=== PATIENT | female | born 1945 | race Caucasian/White ===

== ENCOUNTER 2017-10-14 16:54 | Observation (INO) ==
[2017-10-14] MEDS ORDERED: Morphine Inj 4 MG/ML Vial IV.PUSH ONE (19:07)
--- NOTE | 2017-10-14 20:07 | ED ---
HPI General Chief complaint: Syncope Stated complaint: Dr Referred/Syncope complaint Time Seen by Provider: 10/14/17 18:47 Source: patient and family Mode of arrival: ambulatory History of Present Illness HPI narrative: 72yF presenting with multiple episodes of syncope. The patient states that she is visiting from [place] and today had 3 episodes of syncope and fall. She denies any prodromal symptoms and says "I just passed out"; 2 episodes were witnessed and the patient admits to hitting her head on a table during 1 episode. She complains of posterior neck pain, back pain, and " tailbone pain". Denies history of syncope in the past, admits to history of A fib about 30 years ago. Family history non-contributory. Related Data Home Medications Medication Instructions Recorded Confirmed atenolol [Tenormin] 25 mg PO BID 10/14/17 10/14/17 clonidine HCl [Catapres] 0.1 mg PO BID 10/14/17 10/14/17 cyclobenzaprine 10 mg PO BID PRN 10/14/17 10/14/17 gabapentin 300 mg PO TID 10/14/17 10/14/17 glipizide 10 mg PO DAILY 10/14/17 10/14/17 lisinopril 20 mg PO DAILY 10/14/17 10/14/17 tizanidine 4 mg PO TID PRN 10/14/17 10/14/17 tramadol 50 mg PO Q4-6H PRN 10/14/17 10/14/17 Allergies Allergy/AdvReac Type Severity Reaction Status Date / Time No Known Allergies Allergy Unverified 10/14/17 19:07 Review of Systems Except as stated in HPI: all other systems reviewed are negative Constitutional Denies fever(s) Eyes Denies blurry vision ENT Denies nasal congestion Cardiovascular Denies chest pain Respiratory Denies cough Gastrointestinal Denies nausea Genitourinary Denies dysuria Musculoskeletal Reports back pain, Denies muscle weakness and Reports neck pain Neurologic Denies confusion Psychiatric Denies confusion PMFSH History History Provided By: Patient Medical History Medical History Hypertension (Acute) Type 2 diabetes mellitus (Acute) Surgical History Surgical History H/O arthroscopic knee surgery (Acute) Hx of tonsillectomy (Acute) Social History Social History Substance History: No History of Abuse Smoking Status: Never smoker How Often Do You Have a Drink Containing Alcohol: Never Recent Travel in [facility] within the Last 8 Weeks: No Recent Out of Country Travel within the Last 8 Weeks: No Immunization History Tetanus Immunization: Unsure Exam Const General: healthy appearing and no acute distress HENRI Other: Abrasion to left cheek Hematoma to left posterior scalp, no abrasion No raccoon eyes or Khoury's sign No epistaxis or septal hematoma No intraoral trauma Eyes General: appearance normal, both eyes and all related structures Pupils: PERRL Neck Other: No midline C spine tenderness Chest Chest: normal inspection of the chest Resp Effort & Inspection: normal respiratory effort Auscultation: no rhonchi and no wheezes Cardio Rate: regular rate Rhythm: regular rhythm GI Inspection: non-distended Palpation: soft and nontender Skin Other: Ecchymosis to left lateral shoulder, overlying left scapula, left knee, right knee Neuro General: alert, awake, oriented x3 and no focal motor deficits Other: Motor strength 5/5, sensation intact throughout, no pronator drift, no asterixis or dysmetria, no nystagmus, speech clear and fluent, GCS 15, no focal neuro deficits Psych Affect: normal affect Course Initial Documented Vital Signs Temperature 98.2 F 10/14/17 17:30 Pulse Rate 85 10/14/17 17:30 Respiratory Rate 16 10/14/17 17:30 Blood Pressure 138/68 10/14/17 17:30 Pulse Oximetry 99 10/14/17 17:30 Last Documented Vital Signs Temperature 98.2 F 10/14/17 17:30 Pulse Rate 77 10/14/17 22:00 Respiratory Rate 16 10/14/17 22:00 Blood Pressure 151/68 H 10/14/17 22:00 Pulse Oximetry 98 10/14/17 22:00 Medical Decision Making [facility] Narrative Medical decision making narrative: Assessment: 72yF presenting with multiple episodes of syncope and collapse Plan: EKG and monitor Labs, including trop CT brain/ C spine/ C/A/P to rule out traumatic injuries Pain control Reassess Addendum: Patient's workup significant for mildly elevated troponin (trending down) and elevated BUN/ creat; the patient reports her creatinine was previous 0.8 but I don't have any previous labs in our system to compare to. CT scans show no acute traumatic injuries. This patient cannot go home as she has recurrent syncopal episodes and acute kidney injury; she will need IV hydration , cardiac monitoring, and re-evaluation at frequent intervals. Case discussed with Dr. Valero of [facility] service. I informed the patient of the results of all labs and imaging as well as plan to keep her in the hospital; she understands and agrees. Differential Diagnosis Differential Diagnosis: Differential diagnosis includes, but is not limited to: ACS, arrhythmia, vasovagal syncope, electrolyte abnormality, dehydration, anemia , lower suspicion for non-convulsive seizure Lab Data Result diagrams: 10/14/17 19:00 10/14/17 19:00 Lab Results 10/14/17 10/14/17 10/14/17 Range/Units 19:00 19:00 19:00 WBC 9.6 (4.0-11.0) th/mm3 RBC 5.35 H (4.00-5.30) mil/mm3 Hgb 15.0 (11.6-15.3) gm/dL Hct 45.0 (35.0-46.0) % MCV 84.2 (80.0-100.0) fL MCH 28.1 (27.0-34.0) pg MCHC 33.4 (32.0-36.0) % RDW 13.7 (11.6-17.2) % Plt Count 261 (150-450) th/mm3 MPV 8.8 (7.0-11.0) fL Neut % (Auto) 61.9 (16.0-70.0) % Lymph % (Auto) 29.1 (9.0-44.0) % [place] % (Auto) 7.3 (0.0-8.0) % Eos % (Auto) 0.9 (0.0-4.0) % Baso % (Auto) 0.8 (0.0-2.0) % Neut # (Auto) 6.0 (1.8-7.7) th/mm3 Lymph # (Auto) 2.8 (1.0-4.8) th/mm3 [place] # (Auto) 0.7 (0.0-0.9) th/mm3 Eos # (Auto) 0.1 (0.0-0.4) th/mm3 Baso # (Auto) 0.1 (0.0-0.2) th/mm3 WBC Differential . Differential Comment Auto diff final PT 10.1 (9.8-11.6) sec INR 1.0 Ratio Sodium 135 L (136-145) meq/L Potassium 3.7 (3.5-5.1) meq/L Chloride 99 (98-107) meq/L Carbon Dioxide 24.2 (21.0-32.0) meq/L Anion Gap 12 (5-15) meq/L BUN 44 H (7-18) mg/dL Creatinine 2.03 H (0.50-1.00) mg/dL Estimated GFR 24 L (>89) mL/min Random Glucose 405 H (74-106) mg/dL Calcium 9.4 (8.5-10.1) mg/dL Troponin I 0.10 H (0.02-0.05) ng/mL 10/14/17 Range/Units 22:15 WBC (4.0-11.0) th/mm3 RBC (4.00-5.30) mil/mm3 Hgb (11.6-15.3) gm/dL Hct (35.0-46.0) % MCV (80.0-100.0) fL MCH (27.0-34.0) pg MCHC (32.0-36.0) % RDW (11.6-17.2) % Plt Count (150-450) th/mm3 MPV (7.0-11.0) fL Neut % (Auto) (16.0-70.0) % Lymph % (Auto) (9.0-44.0) % [place] % (Auto) (0.0-8.0) % Eos % (Auto) (0.0-4.0) % Baso % (Auto) (0.0-2.0) % Neut # (Auto) (1.8-7.7) th/mm3 Lymph # (Auto) (1.0-4.8) th/mm3 [place] # (Auto) (0.0-0.9) th/mm3 Eos # (Auto) (0.0-0.4) th/mm3 Baso # (Auto) (0.0-0.2) th/mm3 WBC Differential Differential Comment PT (9.8-11.6) sec INR Ratio Sodium (136-145) meq/L Potassium (3.5-5.1) meq/L Chloride (98-107) meq/L Carbon Dioxide (21.0-32.0) meq/L Anion Gap (5-15) meq/L BUN (7-18) mg/dL Creatinine (0.50-1.00) mg/dL Estimated GFR (>89) mL/min Random Glucose (74-106) mg/dL Calcium (8.5-10.1) mg/dL Troponin I 0.08 H (0.02-0.05) ng/mL Imaging Data Radiologist's impression: ITS Impressions Cervical Spine CT 10/14/17 19:07 CONCLUSION: 1. No acute cervical spine abnormality is identified. However, there is degenerative disc disease at C4-C5 and extending through C6-C7. 2. There is a right thyroid nodule measuring [address] 10/14/17 19:07 CONCLUSION: No acute intracranial abnormality is identified. Abdomen/Pelvis CT 10/14/17 20:39 CONCLUSION: 1. No acute abnormality is identified within the abdomen or pelvis. 2. Nonacute findings include cholelithiasis and severe atherosclerotic disease. Chest CT 10/14/17 20:39 CONCLUSION: 1. No acute finding is identified within the chest. 2. There is a 3 mm pulmonary nodule in the left lower lobe. ECG Data Interpretation: Rate: 80 BPM Rhythm: Sinus [place]: Normal Intervals: Normal intervals, no blocks, QTc 424 ms Q waves: aVL, V2 T waves: Flattened in aVL ST segments: No elevations or depressions Impression: Non-specific EKG, Q wave in aVL is new but otherwise no significant changes as compared to EKG from 11/19/2006. Discharge Plan Discharge Disposition Patient Disposition: 30 Still Patient Discharge Condition Condition: Stable Discharge Details Diagnosis: Recurrent syncope, Acute kidney injury Physicians Team ED Provider: Leilani Ferguson Primary Care Provider: Primary Care Crystal Up Attending Provider: Colette Valero Discharge Interventions Interventions: Vital Signs Last Done: 10/14/17 22:00 Status ED Status: Admitted Observation Patient
[2017-10-14 20:09] LABS: Baso # (Auto) 0.1 th/mm3 (0.0-0.2); Baso % (Auto) 0.8 % (0.0-2.0); Eos # (Auto) 0.1 th/mm3 (0.0-0.4); Eos % (Auto) 0.9 % (0.0-4.0); Lymph # (Auto) 2.8 th/mm3 (1.0-4.8); Lymph % (Auto) 29.1 % (9.0-44.0); Mean Corpuscular HGB Conc 33.4 % (32.0-36.0); Mean Corpuscular Hemoglobin 28.1 pg (27.0-34.0); Mean Corpuscular Volume 84.2 fL (80.0-100.0); Mean Platelet Volume 8.8 fL (7.0-11.0); Mono # (Auto) 0.7 th/mm3 (0.0-0.9); Mono % (Auto) 7.3 % (0.0-8.0); Neut % (Auto) 61.9 % (16.0-70.0); Platelet Count 261 th/mm3 (150-450); Red Blood Count 5.35 mil/mm3 (4.00-5.30); Red Cell Distribution Width 13.7 % (11.6-17.2); White Blood Count 9.6 th/mm3 (4.0-11.0)
[2017-10-14 20:17] LABS: Prothrombin Time 10.1 sec (9.8-11.6)
[2017-10-14] MEDS ORDERED: Sod Chloride 0.9% Inj 1,000 ML IV.SIG ONE ×2 (20:18→23:02)
[2017-10-14 20:27] LABS: Calcium 9.4 mg/dL (8.5-10.1); Carbon Dioxide 24.2 meq/L (21.0-32.0)
[2017-10-14 20:28] LABS: Potassium 3.7 meq/L (3.5-5.1)
[2017-10-14 20:46] LABS: Troponin I 0.1 ng/mL (0.02-0.05)
--- NOTE | 2017-10-14 21:22 | CT ---
EXAM DATE: 10/14/2017 9:18 PM EDT AGE/SEX: 72 years / Female INDICATIONS: Trauma. Fall. Syncope CLINICAL DATA: This is the patient's initial encounter. Patient reports that signs and symptoms have been present for 4 - 6 days and indicates a pain score of 7/10. MEDICAL/SURGICAL HISTORY: Hypertension. Diabetes. None. RADIATION DOSE: 41.85 CTDI (mGy) COMPARISON: No prior exams available for comparison. TECHNIQUE: CT of the head without contrast. Using automated exposure control and adjustment of the mA and/or kV according to patient size, radiation dose was kept as low as reasonably achievable to ob tain optimal diagnostic quality images. DICOM format image data is available electronically for revi ew and comparison. FINDINGS: Cerebrum: There is mild generalized atrophy and ventricles are normal given the degree of atrophy. M ild periventricular white matter change is present. No midline shift, mass lesion, hemorrhage or acu te infarction. No extraaxial fluid collections are seen. Posterior Fossa: The cerebellum and brainstem demonstrate no acute abnormality. The 4th ventricle is midline. The cerebellopontine angle is within normal limits. Extracranial: The visualized sinuses are clear. Skull: The calvaria is intact. No skull fracture. CONCLUSION: No acute intracranial abnormality is identified. Electronically signed by: Josef Castano MD 10/14/2017 9:21 PM EDT
--- NOTE | 2017-10-14 21:51 | CT ---
EXAM DATE: 10/14/2017 9:34 PM EDT AGE/SEX: 72 years / Female INDICATIONS: Trauma. Fall. Syncope. CLINICAL DATA: This is the patient's initial encounter. Patient reports that signs and symptoms have been present for 4 - 6 days and indicates a pain score of 5/10. MEDICAL/SURGICAL HISTORY: Hypertension. Diabetes. None. RADIATION DOSE: 19.33 CTDI (mGy) COMPARISON: No prior exams available for comparison. TECHNIQUE: Contiguous axial images were obtained using helical multirow detector technique. The vol umetric data was post-processed with multiplanar reconstruction in oblique axial, sagittal, and coron al planes. Using automated exposure control and adjustment of the mA and/or kV according to patient s ize, radiation dose was kept as low as reasonably achievable to obtain optimal diagnostic quality pipe ges. DICOM format image data is available electronically for review and comparison. FINDINGS: There is normal sagittal spinal alignment of the cervical spine. No fracture or dislocation is identi fied. There is no anterolisthesis or retrolisthesis. The atlantoaxial relationship is within normal l imits and no prevertebral soft tissue swelling is appreciated. Degenerative disc disease is present a t C4-C5 and extending through C6-C7. The visualized surrounding structures demonstrate no acute abnormality. However, there is a hypodense right thyroid nodule measuring 7 mm. CONCLUSION: 1. No acute cervical spine abnormality is identified. However, there is degenerative disc disease at C4-C5 and extending through C6-C7. 2. There is a right thyroid nodule measuring 7 mm. Electronically signed by: Josef Castano MD 10/14/2017 9:49 PM EDT
--- NOTE | 2017-10-14 22:00 | CT ---
EXAM DATE: 10/14/2017 9:37 PM EDT AGE/SEX: 72 years / Female INDICATIONS: Trauma. Fall. CLINICAL DATA: This is the patient's initial encounter. Patient reports that signs and symptoms have been present for 1 day and indicates a pain score of 6/10. MEDICAL/SURGICAL HISTORY: Hypertension. Diabetes. None. RADIATION DOSE: 14.47 CTDI (mGy) ; Combined studies COMPARISON: No prior exams available for comparison. TECHNIQUE: Multiple contiguous axial images were obtained through the chest without contrast. Image s were obtained in suspended respiration using multiple row detector helical technique. Using automa esau exposure control and adjustment of the mA and/or kV according to patient size, radiation dose was kept as low as reasonably achievable to obtain optimal diagnostic quality images. DICOM format imag e data is available electronically for review and comparison. FINDINGS: Lungs: No consolidation or pneumothorax. There is mild respiratory motion artifact. A 3 mm subpleur al nodule is present in the left lower lobe on image 36. Mediastinum: The heart and great vessels demonstrate no acute abnormality. No lymphadenopathy is id entified. There is coronary artery calcification and atherosclerotic disease of the aorta. Pleurae: No pleural effusion or pleural thickening. Axillae: No lymphadenopathy. Musculoskeletal: The bones and soft tissues demonstrate no acute abnormality. There are degenerativ e changes of the thoracic spine. Other: Please refer to abdomen and pelvis CT report for description of the subdiaphragmatic findings . CONCLUSION: 1. No acute finding is identified within the chest. 2. There is a 3 mm pulmonary nodule in the left lower lobe. Electronically signed by: Josef Castano MD 10/14/2017 9:58 PM EDT
--- NOTE | 2017-10-14 22:31 | CT ---
EXAM DATE: 10/14/2017 9:40 PM EDT AGE/SEX: 72 years / Female INDICATIONS: Trauma. Fall. CLINICAL DATA: This is the patient's initial encounter. Patient reports that signs and symptoms have been present for 4 - 6 days and indicates a pain score of 6/10. MEDICAL/SURGICAL HISTORY: Hypertension. Diabetes. None. RADIATION DOSE: 14.47 CTDI (mGy) ; Combined studies COMPARISON: No prior exams available for comparison. TECHNIQUE: Multiple contiguous axial images were obtained through the abdomen. Images were obtained using multiple row detector helical technique. Using automated exposure control and adjustment of the mA and/or kV according to patient size, radiation dose was kept as low as reasonably achievable to o btain optimal diagnostic quality images. DICOM format image data is available electronically for rev iew and comparison. FINDINGS: There is respiratory motion artifact. Lower chest: Please refer to chest CT report for description of the supradiaphragmatic findings. Hepatobiliary: Liver density is normal. No focal lesion is seen. There are calcified stones in the ga llbladder. Kidneys: No hydronephrosis, stone, or mass. Adrenal Glands: Within normal limits. Spleen: Within normal limits. Pancreas: No abnormality is identified. Vascular: The aorta is nonaneurysmal. There is moderate to severe atherosclerotic disease. Bowel/Mesentery: The stomach and small bowel demonstrate no abnormality. No acute colon abnormality i s seen. There is no free intraperitoneal air or fluid. Sigmoid diverticulosis is present. Abdominal Wall: No hernia is visualized. Retroperitoneum: No lymphadenopathy. Bladder: No wall thickening or mass. Reproductive: Within normal limits. Inguinal: No lymphadenopathy or hernia. Musculoskeletal: No acute osseous abnormality is identified. There are degenerative changes of the prosper mbar spine. CONCLUSION: 1. No acute abnormality is identified within the abdomen or pelvis. 2. Nonacute findings include cholelithiasis and severe atherosclerotic disease. Electronically signed by: Josef Castano MD 10/14/2017 10:30 PM EDT
[2017-10-14] MEDS ORDERED: Dextrose 50% in Water 50 ML Vial IV.PUSH PRN (23:09)
[2017-10-14] MEDS ORDERED: Bisacodyl 10 MG Supp RECTAL PRN (23:10)
[2017-10-14] MEDS ORDERED: Morphine Sulfate Inj 2 MG/ML Vial IV.PUSH PRN (23:12)
--- NOTE | 2017-10-14 23:13 | P.HPIM ---
History of Present Illness Primary Care Physician: No Primary Care Physician History of Present Illness: This is a 72-year-old female with a PMH of HTN and DM who presented to the ER after syncopal event. Patient is visiting from [place], [place] to assist family members w/ their medical problems, states she's been following w/ PCP in [place] for c/o back pain and was started on Neurontin and Zanaflex approx 3wks ago. Last week notes acute onset of dizziness w/ few syncopal events, did not seek medical attention at that time. Today, states she had syncope x3 w/ head trauma on kitchen floor. No seizure activity noted. Denies chest pain but notes brief episode of dizziness prior to syncope. On arrival, BP 135/69, HR 81 , O2 sat 100% on RA. CBC unremarkable. Creatinine 2.03, no previous labs for comparison. Troponin 0 0.10, repeat 0.08. CT Head/C-spine with no acute findings. CT Chest with no acute findings, 3 mm pulmonary nodule LLL. CT Abdomen/Pelvis negative for acute findings. - Diagnosis (1) Syncope (2) KERRI (acute kidney injury) (3) Elevated troponin (4) DM (diabetes mellitus) Inpatient Certification: I certify that the inpatient services were ordered in accordance with Medicare regulations governing the order. This includes certification that hospital inpatient services are reasonable and necessary and in the case of services not specified as inpatient-only under 42 CFR 419.22(n), that they are appropriately provided as inpatient services in accordance to with the 2-midnight benchmark under 43 CFR 412.3(e) Review of Systems All other systems reviewed negative except as stated in HPI [facility] - History History Provided By: Patient - Medical History Medical History: Medical History (Last Reviewed 10/14/17 @ 20:11 by Leilani Ferguson DO) Hypertension Type 2 diabetes mellitus - Surgical History Surgical History: Surgical History (Last Reviewed 10/14/17 @ 20:11 by Leilani Ferguson DO) H/O arthroscopic knee surgery Hx of tonsillectomy - Tobacco History Smoking Status: Never smoker - Alcohol History How Often Do You Have a Drink Containing Alcohol: Never - Substance Use History Substance History: No History of Abuse - Travel History Recent Travel in the [place] Within the Last 8 Weeks: No Recent Travel Out of the Country Within the Last 8 Weeks: No - Immunization History Tetanus Immunization: Unsure Medications and Allergies Active Medications: Active Medications Hydrocodone Bitart/Acetaminophen ([place] 5/325) 1 tab PO Q4H PRN PRN Reason: PAIN 3-5 Al Hydroxide/Mg Hydroxide (Milk Of Magnesia Liq) 30 ml PO Q12H PRN PRN Reason: Mild Constipation Atenolol (Tenormin) 25 mg PO BID TRINA Bisacodyl (Dulcolax Supp) 10 mg RECTAL DAILY PRN PRN Reason: SEVERE CONSITIPATION Clonidine HCl (Clonidine (Nicu) 20 Mcg/Ml Liq) 100 mcg PO BID TRINA Dextrose (D50w Vial) 50 ml IV.PUSH UNSCH PRN PRN Reason: PER HYPOGLYCEMIA PROTOCOL Glucagon (Glucagon Inj) 1 mg OTHER PRN PRN PRN Reason: for Hypoglycemia Protocol Sodium Chloride (Ns Inj) 1,000 mls @ 100 mls/hr IV.CONT .Q10H TRINA Insulin Aspart (Novolog Insulin Suppl Scale Inj) 0 unit SQ ACHS TRINA; Protocol Lactulose (Lactulose Liq) 30 ml PO DAILY PRN PRN Reason: SEVERE CONSITIPATION Metoclopramide HCl (Reglan Inj) 5 mg IV.PUSH Q6HR PRN; Protocol PRN Reason: NAUSEA OR VOMITING Morphine Sulfate (Morphine Inj) 2 mg IV.PUSH Q4H PRN PRN Reason: PAIN 6-10 Senna/Docusate Sodium (Kaelyn-Colace) 1 tab PO BID [facility] Sennosides (Senokot) 17.2 mg PO Q12H PRN PRN Reason: Moderate Constipation Allergies Allergy/AdvReac Type Severity Reaction Status Date / Time No Known Allergies Allergy Unverified 10/14/17 19:07 Home Medications Medication Instructions Recorded Confirmed Type atenolol [Tenormin] 25 mg PO BID 10/14/17 10/14/17 History clonidine HCl [Catapres] 0.1 mg PO BID 10/14/17 10/14/17 History cyclobenzaprine 10 mg PO BID PRN 10/14/17 10/14/17 History gabapentin 300 mg PO TID 10/14/17 10/14/17 History glipizide 10 mg PO DAILY 10/14/17 10/14/17 History lisinopril 20 mg PO DAILY 10/14/17 10/14/17 History tizanidine 4 mg PO TID PRN 10/14/17 10/14/17 History tramadol 50 mg PO Q4-6H PRN 10/14/17 10/14/17 History Exam Vital signs: Vital Signs 10/14/17 17:30 10/14/17 18:48 10/14/17 20:00 Temperature 98.2 F Pulse Rate 85 81 78 Respiratory Rate 16 20 16 Blood Pressure 138/68 135/69 121/68 Pulse Oximetry 99 100 100 10/14/17 20:43 10/14/17 22:00 Temperature Pulse Rate 77 Respiratory Rate 16 16 Blood Pressure 151/68 H Pulse Oximetry 98 Intake & Output 10/14/17 10/14/17 10/15/17 06:59 18:59 06:59 Weight 68.039 kg Narrative: PE: GENERAL: Very pleasant middle-aged white female in no acute distress. Sister-in -law at bedside HEENT: [place], EOMI. No scleral icterus or conjunctival pallor. No lid lag or facial droop. CARDIOVASCULAR: Regular rate and rhythm. No obvious murmurs to auscultation. No chest tenderness to palpation. RESPIRATORY: No obvious rhonchi or wheezing. Clear to auscultation. Breath sounds equal bilaterally. GASTROINTESTINAL: Abdomen soft, non-tender, nondistended. BS normal. MUSCULOSKELETAL: Extremities without clubbing, cyanosis, or edema. No obvious deformities. NEUROLOGICAL: Awake, alert and oriented x4. No focal neurologic deficits. Moving both upper and lower extremities spontaneously. Results - Labs CBC & Chem 7: 10/14/17 19:00 10/14/17 19:00 Labs: Short CBC 10/14/17 Range/Units 19:00 WBC 9.6 (4.0-11.0) th/mm3 Hgb 15.0 (11.6-15.3) gm/dL Hct 45.0 (35.0-46.0) % Plt Count 261 (150-450) th/mm3 BMP 10/14/17 19:00 Sodium 135 L Potassium 3.7 Chloride 99 Carbon Dioxide 24.2 BUN 44 H Creatinine 2.03 H Calcium 9.4 Cardiac Enzymes 10/14/17 10/14/17 Range/Units 19:00 22:15 Troponin I 0.10 H 0.08 H (0.02-0.05) ng/mL - Imaging Impressions Cervical Spine CT 10/14/17 19:07 CONCLUSION: 1. No acute cervical spine abnormality is identified. However, there is degenerative disc disease at C4-C5 and extending through C6-C7. 2. There is a right thyroid nodule measuring [address] 10/14/17 19:07 CONCLUSION: No acute intracranial abnormality is identified. Abdomen/Pelvis CT 10/14/17 20:39 CONCLUSION: 1. No acute abnormality is identified within the abdomen or pelvis. 2. Nonacute findings include cholelithiasis and severe atherosclerotic disease. Chest CT 10/14/17 20:39 CONCLUSION: 1. No acute finding is identified within the chest. 2. There is a 3 mm pulmonary nodule in the left lower lobe. Caprini VTE Risk Assessment Caprini VTE Risk Assessment: No/Low Risk (score <= 1) Caprini Risk Assessment Model: Point Value = 1 Point Value = 2 Point Value = 3 Point Value = 5 Age 41-60 Minor surgery BMI > 25 kg/m2 Swollen legs Varicose veins or History of unexplained or recurrent spontaneous Oral contraceptives or hormone replacement Sepsis (< 1 month) Serious lung disease, including pneumonia (< 1 month) Abnormal pulmonary function Acute myocardial infarction Congestive heart failure (< 1 month) History of inflammatory bowel disease Medical patient at bed rest Age 61-74 Arthroscopic surgery Major open surgery (> 45 min) Laparoscopic surgery (> 45 min) Malignancy Confined to bed (> 72 hours) Immobilizing plaster cast Central venous access Age >= 75 History of VTE Family history of VTE Factor V Leiden Prothrombin [id number] Lupus anticoagulant Anticardiolipin antibodies Elevated serum homocysteine Heparin-induced thrombocytopenia Other congenital or acquired thrombophilia Stroke (< 1 month) Elective arthroplasty Hip, pelvis, or leg fracture Acute spinal cord injury (< 1 month) Prophylaxis Regimen: Total Risk Factor Score Risk Level Prophylaxis Regimen 0-1 Low Early ambulation 2 Moderate Order ONE of the following: *Sequential Compression Device (SCD) *Heparin 5000 units SQ BID 3-4 Higher Order ONE of the following medications: *Heparin 5000 units SQ TID *Enoxaparin/Lovenox 40 mg SQ daily (WT < 150 kg, CrCl > 30 mL/min) *Enoxaparin/Lovenox 30 mg SQ daily (WT < 150 kg, CrCl > 10-29 mL/min) *Enoxaparin/Lovenox 30 mg SQ BID (WT < 150 kg, CrCl > 30 mL/min) AND/OR *Sequential Compression Device (SCD) 5 or more Highest Order ONE of the following medications: *Heparin 5000 units SQ TID (Preferred with Epidurals) *Enoxaparin/Lovenox 40 mg SQ daily (WT < 150 kg, CrCl > 30 mL/min) *Enoxaparin/Lovenox 30 mg SQ daily (WT < 150 kg, CrCl > 10-29 mL/min) *Enoxaparin/Lovenox 30 mg SQ BID (WT < 150 kg, CrCl > 30 mL/min) AND *Sequential Compression Device (SCD) Assessment and Plan - Assessment (1) Syncope Code(s): R55 - Syncope and collapse Status: Acute (2) KERRI (acute kidney injury) Code(s): N17.9 - Acute kidney failure, unspecified Status: Acute (3) Elevated troponin Code(s): R74.8 - Abnormal levels of other serum enzymes Status: Acute (4) DM (diabetes mellitus) Code(s): E11.9 - Type 2 diabetes mellitus without complications Status: Acute - Plan A/P: 1. Syncope: c/o dizziness prior to syncopal event, likely combination of dehydration and medication side effects, however r/o underlying cardiac etiology. Telemetry, IVF for hydration, check repeat trop, check Echo to eval for cardiomyopathy 2. Elevated Trop: Trop 0.10, repeat trending down at 0.08, will check serial cardiac enzymes. No c/o chest pain. Telemetry, check Echo as above, check Lipid Profile. Consult Cardiology as needed for further eval/intervention. ASA , Atenolol, start Statin. 3. KERRI: Creatinine 2.03, no previous labs for comparison, however presumably new, IVF for hydration, monitor I/O, repeat labs in am. 4. DM: Sliding scale w/ Accu-Cheks, hold Glipizide for now. 5. DVT Prophylaxis: SCD/Teds 6. Social work for d/c planning as needed 7. Case discussed w/ ER physician at length, labs/records/imaging reviewed by me.
[2017-10-15] MEDS: Sod Chloride 0.9% Inj 1,000 ML IV.CONT SCH ×3 (02:00→16:03)
[2017-10-15 06:35] LABS: Baso % (Auto) 0.5 % (0.0-2.0); Eos # (Auto) 0.1 th/mm3 (0.0-0.4); Hematocrit 38.7 % (35.0-46.0); Lymph # (Auto) 2.3 th/mm3 (1.0-4.8); Lymph % (Auto) 33.5 % (9.0-44.0); Mean Corpuscular HGB Conc 33.7 % (32.0-36.0); Mean Corpuscular Hemoglobin 28.4 pg (27.0-34.0); Mean Corpuscular Volume 84.3 fL (80.0-100.0); Mean Platelet Volume 8.8 fL (7.0-11.0); Mono # (Auto) 0.6 th/mm3 (0.0-0.9); Mono % (Auto) 8.5 % (0.0-8.0); Neut # (Auto) 3.8 th/mm3 (1.8-7.7); Neut % (Auto) 55.5 % (16.0-70.0); Platelet Count 190 th/mm3 (150-450); Red Blood Count 4.59 mil/mm3 (4.00-5.30); Red Cell Distribution Width 13.6 % (11.6-17.2); White Blood Count 6.8 th/mm3 (4.0-11.0)
[2017-10-15 06:58] LABS: Alanine Aminotransferase 32 U/L (10-53); Albumin 2.9 g/dL (3.4-5.0); Anion Gap 8 meq/L (5-15); Aspartate Aminotransferase 34 U/L (15-37); Blood Urea Nitrogen 34 mg/dL (7-18); Calcium 7.9 mg/dL (8.5-10.1); Carbon Dioxide 24.4 meq/L (21.0-32.0); Chloride 108 meq/L (98-107); Glomerular Filtration Rate 42 mL/min (>89); Glucose,Random 304 mg/dL (74-106); Potassium 3.6 meq/L (3.5-5.1); Sodium 140 meq/L (136-145)
[2017-10-15 07:01] LABS: Alkaline Phosphatase 51 U/L (45-117); Total Protein 6.2 g/dL (6.4-8.2)
[2017-10-15 07:02] LABS: Chol/HDL Ratio 3.19 Ratio; HDL Cholesterol 42.6 mg/dL (40.0-60.0)
[2017-10-15 07:05] LABS: Creatine Kinase 31 U/L (26-192)
[2017-10-15] MEDS ORDERED: cloNIDine Susp (NICU) 20 MCG/ML 30 ML Bottle PO SCH (09:00)
[2017-10-15] MEDS: Aspirin 325 MG Tablet PO SCH (09:22)
[2017-10-15] MEDS: Senna/Docusate Sodium 8.6/50 MG Tablet PO SCH ×2 (09:22→20:41)
[2017-10-15] MEDS: Atenolol 25 MG Tablet PO SCH ×2 (09:22→20:41)
--- NOTE | 2017-10-15 09:36 | P.PNIM ---
Subjective Interval history: No lightheadedness today. She said she started the gabapentin about a month ago , also started tizanidine about a month ago, also started tramadol about a month ago. She is only had several doses of muscle relaxant, tramadol, however has been taking gabapentin regularly.. Also started clonidine about a month ago Physical Exam Vital signs: Vital Signs 10/14/17 17:30 10/14/17 18:48 10/14/17 20:00 Temperature 98.2 F Pulse Rate 85 81 78 Respiratory Rate 16 20 16 Blood Pressure 138/68 135/69 121/68 Pulse Oximetry 99 100 100 10/14/17 20:43 10/14/17 22:00 10/15/17 02:38 Temperature 95.5 F L Pulse Rate 77 74 Respiratory Rate 16 16 20 Blood Pressure 151/68 H 154/72 H Pulse Oximetry 98 99 10/15/17 04:00 10/15/17 07:01 10/15/17 08:00 Temperature 95.8 F L 97.7 F Pulse Rate 70 67 77 Respiratory Rate 20 20 Blood Pressure 108/62 170/82 H Pulse Oximetry 99 99 Intake & Output 10/14/17 10/15/17 10/15/17 18:59 06:59 18:59 Weight 68.039 kg Narrative: GENERAL: She is lying in bed. Appears comfortable. Alert and oriented 3. SKIN: Warm and dry. HEAD: Normocephalic. EYES: No scleral icterus. No injection or drainage. NECK: Supple, trachea midline. No JVD. CARDIOVASCULAR: Regular rate and rhythm without murmurs, gallops, or rubs. RESPIRATORY: Breath sounds equal bilaterally. No accessory muscle use. GASTROINTESTINAL: Abdomen soft, non-tender, nondistended. MUSCULOSKELETAL: No cyanosis, or edema. BACK: Nontender without obvious deformity. No CVA tenderness. Results - Labs CBC & Chem 7: 10/15/17 04:34 10/15/17 04:34 Laboratory Results - last 24 hr 10/14/17 10/14/17 10/14/17 19:00 19:00 19:00 WBC 9.6 RBC 5.35 H Hgb 15.0 Hct 45.0 MCV 84.2 MCH 28.1 MCHC 33.4 RDW 13.7 Plt Count 261 MPV 8.8 Neut % (Auto) 61.9 Lymph % (Auto) 29.1 [place] % (Auto) 7.3 Eos % (Auto) 0.9 Baso % (Auto) 0.8 Neut # (Auto) 6.0 Lymph # (Auto) 2.8 [place] # (Auto) 0.7 Eos # (Auto) 0.1 Baso # (Auto) 0.1 WBC Differential . Differential Comment Auto diff final PT 10.1 INR 1.0 Sodium 135 L Potassium 3.7 Chloride 99 Carbon Dioxide 24.2 Anion Gap 12 BUN 44 H Creatinine 2.03 H Estimated GFR 24 L Random Glucose 405 H Calcium 9.4 Total Bilirubin AST ALT Alkaline Phosphatase Total Creatine Kinase Troponin I 0.10 H Total Protein Albumin Triglycerides Cholesterol LDL Cholesterol, Calc HDL Cholesterol Cholesterol/HDL Ratio 10/14/17 10/15/17 10/15/17 22:15 04:34 04:34 WBC 6.8 RBC 4.59 Hgb 13.0 D Hct 38.7 MCV 84.3 MCH 28.4 MCHC 33.7 RDW 13.6 Plt Count 190 MPV 8.8 Neut % (Auto) 55.5 Lymph % (Auto) 33.5 [place] % (Auto) 8.5 H Eos % (Auto) 2.0 Baso % (Auto) 0.5 Neut # (Auto) 3.8 Lymph # (Auto) 2.3 [place] # (Auto) 0.6 Eos # (Auto) 0.1 Baso # (Auto) 0.0 WBC Differential . Differential Comment Auto diff final PT INR Sodium 140 Potassium 3.6 Chloride 108 H D Carbon Dioxide 24.4 Anion Gap 8 BUN 34 H Creatinine 1.25 H Estimated GFR 42 L Random Glucose 304 H D Calcium 7.9 L D Total Bilirubin 0.4 AST 34 ALT 32 Alkaline Phosphatase 51 Total Creatine Kinase 31 Troponin I 0.08 H Total Protein 6.2 L Albumin 2.9 L Triglycerides Cholesterol LDL Cholesterol, Calc HDL Cholesterol Cholesterol/HDL Ratio 10/15/17 04:34 WBC RBC Hgb Hct MCV MCH MCHC RDW Plt Count MPV Neut % (Auto) Lymph % (Auto) [place] % (Auto) Eos % (Auto) Baso % (Auto) Neut # (Auto) Lymph # (Auto) [place] # (Auto) Eos # (Auto) Baso # (Auto) WBC Differential Differential Comment PT INR Sodium Potassium Chloride Carbon Dioxide Anion Gap BUN Creatinine Estimated GFR Random Glucose Calcium Total Bilirubin AST ALT Alkaline Phosphatase Total Creatine Kinase Troponin I Total Protein Albumin Triglycerides 126 Cholesterol 136 LDL Cholesterol, Calc 68 HDL Cholesterol 42.6 Cholesterol/HDL Ratio 3.19 - Imaging Impressions Cervical Spine CT 10/14/17 19:07 CONCLUSION: 1. No acute cervical spine abnormality is identified. However, there is degenerative disc disease at C4-C5 and extending through C6-C7. 2. There is a right thyroid nodule measuring [address] 10/14/17 19:07 CONCLUSION: No acute intracranial abnormality is identified. Abdomen/Pelvis CT 10/14/17 20:39 CONCLUSION: 1. No acute abnormality is identified within the abdomen or pelvis. 2. Nonacute findings include cholelithiasis and severe atherosclerotic disease. Chest CT 10/14/17 20:39 CONCLUSION: 1. No acute finding is identified within the chest. 2. There is a 3 mm pulmonary nodule in the left lower lobe. Assessment and Plan - Assessment (1) Syncope Code(s): R55 - Syncope and collapse Status: Acute (2) KERRI (acute kidney injury) Code(s): N17.9 - Acute kidney failure, unspecified Status: Acute (3) Elevated troponin Code(s): R74.8 - Abnormal levels of other serum enzymes Status: Acute (4) DM (diabetes mellitus) Code(s): E11.9 - Type 2 diabetes mellitus without complications Status: Acute - Plan //Syncope: c/o dizziness prior to syncopal event, likely combination of dehydration and medication side effects, however r/o underlying cardiac etiology. Telemetry, IVF for hydration, check repeat trop, check Echo to eval for cardiomyopathy = Appears to be improving. Will check orthostatic blood pressure. Pending echocardiogram. Have ordered ultrasound carotids. //Elevated Trop: Trop 0.10, repeat trending down at 0.08, will check serial cardiac enzymes. No c/o chest pain. Telemetry, check Echo as above, check Lipid Profile. Consult Cardiology as needed for further eval/intervention. ASA , Atenolol, start Statin. Patient without any chest pain, and troponin elevation likely secondary to kidney failure. Troponin improving. = Due to changes on EKG, with possible septal myocardial infarction will consult cardiology. //KERRI: Creatinine 2.03, no previous labs for comparison, however presumably new , IVF for hydration, monitor I/O, repeat labs in am. = Improving. Creatinine 1.25, however still with elevated BUN. Likely secondary to dehydration. Will check urine drug screen. Avoid lisinopril. // DM: Sliding scale w/ Accu-Cheks, hold Glipizide for now. = Glucose elevated 300s. Start sliding scale. // DVT Prophylaxis: SCD/Teds
[2017-10-15] MEDS ORDERED: amLODIPine 5 MG Tablet PO SCH (09:40)
[2017-10-15] MEDS: Insulin NovoLOG Aspart Correctional Sugar Inj SQ SCH ×4 (10:06→22:21)
--- NOTE | 2017-10-15 11:22 | MB ---
cc: Lalito Jarvis MD DATE: 10/15/2017 REASON FOR CONSULTATION: Evaluation of syncope. HISTORY OF PRESENT ILLNESS: Veronica Perez is a 72-year-old woman from [place] who is here to take care of family members who has had multiple episodes of syncope. The patient describes a burning pain on the lateral aspect of the lower chest on each side, going down into the right hip and lower back. Workup in [place] was negative and they started her on gabapentin. The gabapentin was just started 4 weeks ago. The syncopal episode started initially about 2 weeks ago. She fell twice last week. Yesterday, she fell 3 times. She just says she will be walking, she will feel a little pain and then she will just go down. With this last episode she hit her head on the kitchen floor. She has not had any chest tightness, chest pressure or angina that we can tell. Troponin is minimally elevated. Her creatinine was quite elevated and her sugar was high. She agrees she was probably dehydrated yesterday when these episodes have occurred. She is on muscle relaxers in addition to the gabapentin, but takes only p.r.n. and did not take those yesterday. PAST MEDICAL HISTORY: She has had hypertension about 15 years, diabetes about 15 years. PAST SURGICAL HISTORY: Includes arthroscopic knee surgery and tonsillectomy. SOCIAL HISTORY: She has never smoked. She is a retired RN. MEDICATIONS: Include: 1. Atenolol 25 b.i.d. 2. Clonidine 0.1 b.i.d. 3. Cyclobenzaprine. 4. Gabapentin. 5. Glipizide. 6. Lisinopril 20 mg. 7. Tizanidine. 8. Tramadol. PHYSICAL EXAMINATION: GENERAL: Shows an overweight white female, does not appear to be in acute distress. She is in sinus on telemetry. HEENT: Unremarkable. NECK: Reveals no JVD. No bruits. CHEST: Clear to auscultation. CARDIOVASCULAR: Shows S1 and S2. Regular rate and rhythm with a II/ systolic ejection murmur. ABDOMEN: Obese, soft, nontender. EXTREMITIES: Revealed no clubbing, cyanosis or edema. Pulses in the left foot are good. Pulses in the right foot are mildly diminished, but she has no claudication. LABORATORY STUDIES: CPK was initially 2.03; it has come down to 1.25. Sugar was initially 405; it has come down to 304. Troponin was 0.10 and has come down to 0.08. LDL 68. IMAGING STUDIES: CT scan of the spine shows some DJD changes C4 through C5 and C6 through C7. Head CT shows some brain atrophy. Abdominal CT shows some cholelithiasis and an atherosclerotic aorta. Chest CTA is showing some coronary artery calcifications. Her EKG demonstrates sinus rhythm, poor R-wave progression, slight nonspecific ST-T wave changes. IMPRESSION: A 72-year-old woman with multiple episodes of syncope preceded by dizziness. She is on a fairly high dose of gabapentin that was just started 4 weeks ago. This could possibly be the cause. She has longstanding hypertension, diabetes and has atherosclerotic disease showing up on her CT scans. I cannot elicit any symptoms of angina, however. Troponin is slightly elevated, but with the elevated creatinine, it is nonspecific. RECOMMENDATIONS: The patient is getting ongoing workup with echo and carotid Doppler. She has not had any similar symptoms today and is feeling better. Probably needs to stay off gabapentin. Further therapy to be determined. MD RIANA Barney/TRACEY , 10:54 AM , 11:20 AM
[2017-10-15 12:18] LABS: Amphetamine Screen,Urine Neg (Neg); Barbiturate Screen,Urine Neg (Neg); Cannabinoid Screen,Urine Neg (Neg); Cocaine Screen,Urine Neg (Neg)
[2017-10-15 12:30] LABS: Opiate Screen,Urine Pos (Neg)
--- NOTE | 2017-10-15 14:38 | US ---
EXAM DATE: 10/15/2017 2:11 PM EDT AGE/SEX: 72 years / Female INDICATIONS: Syncope. CLINICAL DATA: This is the patient's initial encounter. Patient reports that signs and symptoms have been present for 1 day and indicates a pain score of 0/10. MEDICAL/SURGICAL HISTORY: Hypertension. Diabetes. Arthroscopy. Tonsillectomy. COMPARISON: No prior exams available for comparison. VELOCITY PARAMETERS: ICA/CCA Ratio: Right 1.8 , Left 1.8 ICA: Right 96.3 cm/sec, Left 125.6 cm/sec CCA: Right 53.7 cm/sec, Left 68.0 cm/sec ECA: Right 59.2 cm/sec, Left 65.8 cm/sec Vertebral: Right 44.9 cm/sec antegrade, Left 46.0 cm/sec antegrade FINDINGS: RIGHT CAROTID: There is no evidence for a hemodynamically significant carotid stenosis. Minimal int imal hyperplasia is present with moderate scattered calcific plaque. LEFT CAROTID: There is no evidence for a hemodynamically significant carotid stenosis. Minimal inti mal hyperplasia is present with moderate scattered calcific plaque. Flow is antegrade in both vertebral arteries. There are no ancillary masses or adenopathy. CONCLUSION: Negative examination for a hemodynamically significant carotid stenosis. Moderate calcif ic plaque is identified. Ryan Wise MD FACR Electronically signed by: Ryan Wise MD 10/15/2017 2:37 PM EDT
--- NOTE | 2017-10-15 17:47 | ECG ---
Date Performed: 10/14/2017 Time Performed: 18:45:31 PTAGE: 72 years EKG: Sinus rhythm SEPTAL MYOCARDIAL INFARCTION ABNORMAL ECG PREVIOUS TRACING : 11/19/2006 07.52 DOCTOR: Ryan Carlos Interpretating Date/Time 10/15/2017 17:46:15
[2017-10-16] MEDS ORDERED: Acetaminophen 325 MG Tablet PO ONE (00:50)
[2017-10-16] MEDS ORDERED: hydrALAZINE HCl Inj 20 MG/ML Vial IV.PUSH ONE (01:52)
[2017-10-16] MEDS ORDERED: Labetalol HCl Inj 100 MG/20 ML Vial IV.PUSH ONE (01:55)
[2017-10-16 09:05] LABS: Calcium 8.5 mg/dL (8.5-10.1); Carbon Dioxide 23.6 meq/L (21.0-32.0); Troponin I 0.03 ng/mL (0.02-0.05)
[2017-10-16] MEDS: Aspirin 325 MG Tablet PO SCH (09:08)
[2017-10-16] MEDS: Atenolol 25 MG Tablet PO SCH ×2 (09:08→21:46)
[2017-10-16] MEDS: Senna/Docusate Sodium 8.6/50 MG Tablet PO SCH ×2 (09:09→21:46)
[2017-10-16] MEDS: Insulin NovoLOG Aspart Correctional Sugar Inj SQ SCH ×4 (09:10→21:57)
[2017-10-16] MEDS ORDERED: Gabapentin 100 MG Capsule PO ONE (10:14)
[2017-10-16] MEDS ORDERED: glipiZIDE 10 MG Tablet PO SCH (11:00)
--- NOTE | 2017-10-16 11:39 | P.PNIM ---
Subjective Interval history: Says she is feeling all right. Some diffuse achiness but denies any chest pain or shortness of breath. Denies nausea or vomiting. Denies any lightheadedness. Physical Exam Vital signs: Vital Signs 10/15/17 15:49 10/15/17 19:21 10/15/17 19:40 Temperature 98.1 F 98.0 F Pulse Rate 72 76 72 Respiratory Rate 18 18 Blood Pressure 162/67 H 204/84 H Pulse Oximetry 95 98 10/15/17 22:34 10/15/17 23:44 10/15/17 23:45 Temperature 98.5 F 97.9 F 98.4 F Pulse Rate 68 70 Respiratory Rate 18 15 Blood Pressure 200/90 H Pulse Oximetry 98 10/16/17 02:32 10/16/17 02:49 10/16/17 03:00 Temperature Pulse Rate 75 74 69 Respiratory Rate 15 16 Blood Pressure 176/81 H 178/80 H Pulse Oximetry 96 97 10/16/17 04:00 10/16/17 08:54 10/16/17 10:26 Temperature 97.9 F 97.9 F Pulse Rate 74 73 Respiratory Rate 18 18 18 Blood Pressure 184/79 H 173/83 H Pulse Oximetry 98 96 Intake & Output 10/15/17 10/16/17 10/16/17 18:59 06:59 18:59 Intake Total 4240 / 4240 Balance 4240 / 4240 Intake: IV 4000 / 4000 NS Inj 1,000 ML @ 100 mls/hr IV 2000 / 2000 .CONT .Q10H TRINA Rx#:[id number] NS Inj 1,000 ML @ Wide Open IV. 1000 / 1000 SIG BOLUS ONE Rx#:[id number] Oral 240 / 240 Other: # Voids 1 Narrative: GENERAL: She is lying in bed. Appears comfortable. Alert and oriented 4. No change on exam SKIN: Warm and dry. HEAD: Normocephalic. EYES: No scleral icterus. No injection or drainage. NECK: Supple, trachea midline. No JVD. CARDIOVASCULAR: Regular rate and rhythm without murmurs, gallops, or rubs. RESPIRATORY: Breath sounds equal bilaterally. No accessory muscle use. GASTROINTESTINAL: Abdomen soft, non-tender, nondistended. MUSCULOSKELETAL: No cyanosis, or edema. BACK: Nontender without obvious deformity. No CVA tenderness. Results - Labs CBC & Chem 7: 10/15/17 04:34 10/16/17 07:26 Laboratory Results - last 24 hr 10/15/17 10/15/17 10/15/17 11:25 12:59 18:35 Sodium Potassium Chloride Carbon Dioxide Anion Gap BUN Creatinine Estimated GFR POC Glucose 244 H Random Glucose Calcium Total Creatine Kinase 33 Troponin I Urine Opiates Screen Pos H Ur Barbiturates Screen Neg Ur Amphetamines Screen Neg U Benzodiazepines Scrn Neg Urine Cocaine Screen Neg U Cannabinoids Screen Neg 10/15/17 10/16/17 10/16/17 21:36 07:26 09:07 Sodium 142 Potassium 4.0 Chloride 108 H Carbon Dioxide 23.6 Anion Gap 10 BUN 17 Creatinine 0.77 Estimated GFR 73 L POC Glucose 150 H 217 H Random Glucose 213 H Calcium 8.5 Total Creatine Kinase Troponin I 0.03 Urine Opiates Screen Ur Barbiturates Screen Ur Amphetamines Screen U Benzodiazepines Scrn Urine Cocaine Screen U Cannabinoids Screen - Imaging Impressions Carotid Doppler Study 10/15/17 00:00 CONCLUSION: Negative examination for a hemodynamically significant carotid stenosis. Moderate calcific plaque is identified. Ryan Wise MD FACR Assessment and Plan - Assessment (1) Syncope Code(s): R55 - Syncope and collapse Status: Acute (2) KERRI (acute kidney injury) Code(s): N17.9 - Acute kidney failure, unspecified Status: Acute (3) Elevated troponin Code(s): R74.8 - Abnormal levels of other serum enzymes Status: Acute (4) DM (diabetes mellitus) Code(s): E11.9 - Type 2 diabetes mellitus without complications Status: Acute - Plan //Syncope: c/o dizziness prior to syncopal event, likely combination of dehydration and medication side effects, however r/o underlying cardiac etiology. Telemetry, IVF for hydration, check repeat trop, check Echo to eval for cardiomyopathy = Appears to be improving. Will check orthostatic blood pressure. Pending echocardiogram. Have ordered ultrasound carotids. = Carotid ultrasound without significant stenosis. Echocardiogram pending. //Elevated Trop: Trop 0.10, repeat trending down at 0.08, will check serial cardiac enzymes. No c/o chest pain. Telemetry, check Echo as above, check Lipid Profile. Consult Cardiology as needed for further eval/intervention. ASA , Atenolol, start Statin. Patient without any chest pain, and troponin elevation likely secondary to kidney failure. Troponin improving. = Due to changes on EKG, with possible septal myocardial infarction will consult cardiology. = Discussed with cardiology yesterday. Pending echocardiogram. //KERRI: Creatinine 2.03, no previous labs for comparison, however presumably new , IVF for hydration, monitor I/O, repeat labs in am. = Improving. Creatinine 1.25, however still with elevated BUN. Likely secondary to dehydration. Will check urine drug screen. Avoid lisinopril. = Resolved. Likely secondary to dehydration //Hypertension. Systolic blood pressures in the 200s overnight. 170s this morning. Likely secondary to gabapentin withdrawal. Will restart low-dose gabapentin with the goal of getting off gabapentin completely as outpatient. Patient conveys understanding. // DM: Sliding scale w/ Accu-Cheks, hold Glipizide for now. = Glucose elevated 300s. Start sliding scale. = 14. Glucose improved. Restart glipizide. Patient will check sugars as outpatient and follow-up with primary care. Patient advised to call primary care if sugars are elevated over 200s consistently. A1c pending as well. Patient conveys understanding // DVT Prophylaxis: SCD/Teds Discharge Planning: pending echo. Patient will check sugars at home and follow-up with primary care.
[2017-10-16] MEDS: amLODIPine 5 MG Tablet PO SCH (11:58)
--- NOTE | 2017-10-16 12:54 | P.DS ---
Date of admission: 10/14/17 23:11 Primary care physician: No Primary Care Physician Brief History from admission: This is a 72-year-old female with a PMH of HTN and DM who presented to the ER after syncopal event. Patient is visiting from [place], [place] to assist family members w/ their medical problems, states she's been following w/ PCP in [place] for c/o back pain and was started on Neurontin and Zanaflex approx 3wks ago. Last week notes acute onset of dizziness w/ few syncopal events, did not seek medical attention at that time. Today, states she had syncope x3 w/ head trauma on kitchen floor. No seizure activity noted. Denies chest pain but notes brief episode of dizziness prior to syncope. On arrival, BP 135/69, HR 81 , O2 sat 100% on RA. CBC unremarkable. Creatinine 2.03, no previous labs for comparison. Troponin 0 0.10, repeat 0.08. CT Head/C-spine with no acute findings. CT Chest with no acute findings, 3 mm pulmonary nodule LLL. CT Abdomen/Pelvis negative for acute findings. DS: Diagnosis - Discharge Diagnosis (1) Syncope Status: Acute (2) KERRI (acute kidney injury) Status: Acute (3) Elevated troponin Status: Acute (4) DM (diabetes mellitus) Status: Acute DS: Medications - Discharge Medications Prescriptions: amlodipine 5 mg PO DAILY #30 tab gabapentin [Neurontin] 100 mg PO BID #60 cap insulin aspart U-100 [Novolog U-100 Insulin aspart] 0 unit SUB-Q ACHS 30 Days ml insulin detemir U-100 [Levemir U-100 Insulin] 5 unit SUB-Q BID 30 Days #3 ml DS: Summary Hospital Course: Patient was treated carotid ultrasound performed without significant stenosis. Echocardiogram eventually resulted with ejection fraction within normal limits. Patient did have elevated troponins up to 0.10, without chest pain. Patient did have some septal changes on EKG, for which cardiology was consulted and recommends decreasing gabapentin, eventually discontinuing. Patient had acute kidney injury with creatinine 2.0 on admission. This resolved with IV fluids and control of blood sugars. Dehydration likely secondary to uncontrolled diabetes. Patient reports A1c in the past of 12. She was restarted on insulin. 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 Patient was found to have significantly elevated blood pressure up to the 200s systolic. Blood pressure medications were adjusted and blood pressure improved. For problem based summary from most recent progress note, please see below. //Syncope: c/o dizziness prior to syncopal event, likely combination of dehydration and medication side effects, however r/o underlying cardiac etiology. Telemetry, IVF for hydration, check repeat trop, check Echo to eval for cardiomyopathy = Appears to be improving. Will check orthostatic blood pressure. Pending echocardiogram. Have ordered ultrasound carotids. = Carotid ultrasound without significant stenosis. Echocardiogram pending. //Elevated Trop: Trop 0.10, repeat trending down at 0.08, will check serial cardiac enzymes. No c/o chest pain. Telemetry, check Echo as above, check Lipid Profile. Consult Cardiology as needed for further eval/intervention. ASA , Atenolol, start Statin. Patient without any chest pain, and troponin elevation likely secondary to kidney failure. Troponin improving. = Due to changes on EKG, with possible septal myocardial infarction will consult cardiology. = Discussed with cardiology yesterday. Pending echocardiogram. //KERRI: Creatinine 2.03, no previous labs for comparison, however presumably new , IVF for hydration, monitor I/O, repeat labs in am. = Improving. Creatinine 1.25, however still with elevated BUN. Likely secondary to dehydration. Will check urine drug screen. Avoid lisinopril. = Resolved. Likely secondary to dehydration //Hypertension. Systolic blood pressures in the 200s overnight. 170s this morning. Likely secondary to gabapentin withdrawal. Will restart low-dose gabapentin with the goal of getting off gabapentin completely as outpatient. Patient conveys understanding. // DM: Sliding scale w/ Accu-Cheks, hold Glipizide for now. = Glucose elevated 300s. Start sliding scale. = 10/16. Glucose improved. Restart glipizide. Patient will check sugars as outpatient and follow-up with primary care. Patient advised to call primary care if sugars are elevated over 200s consistently. A1c pending as well. Patient conveys understanding // DVT Prophylaxis: SCD/Teds Discharge Planning: pending echo. Patient will check sugars at home and follow-up with primary care. - Time Spent with Patient Total time spent providing and/or coordinating discharge services: - Quality: VTE Deep Vein Thrombosis/Pulmonary Embolism Present on Admission: No Exam Vital signs: Vital Signs 10/15/17 15:49 10/15/17 19:21 10/15/17 19:40 Temperature 98.1 F 98.0 F Pulse Rate 72 76 72 Respiratory Rate 18 18 Blood Pressure 162/67 H 204/84 H Pulse Oximetry 95 98 10/15/17 22:34 10/15/17 23:44 10/15/17 23:45 Temperature 98.5 F 97.9 F 98.4 F Pulse Rate 68 70 Respiratory Rate 18 15 Blood Pressure 200/90 H Pulse Oximetry 98 10/16/17 02:32 10/16/17 02:49 10/16/17 03:00 Temperature Pulse Rate 75 74 69 Respiratory Rate 15 16 Blood Pressure 176/81 H 178/80 H Pulse Oximetry 96 97 10/16/17 04:00 10/16/17 08:54 10/16/17 10:26 Temperature 97.9 F 97.9 F Pulse Rate 74 73 Respiratory Rate 18 18 18 Blood Pressure 184/79 H 173/83 H Pulse Oximetry 98 96 10/16/17 12:27 Temperature 98.2 F Pulse Rate 73 Respiratory Rate 20 Blood Pressure 180/84 H Pulse Oximetry 98 Intake & Output 10/15/17 10/16/17 10/16/17 18:59 06:59 18:59 Intake Total 4240 / 4240 Balance 4240 / 4240 Intake: IV 4000 / 4000 NS Inj 1,000 ML @ 100 mls/hr IV 2000 / 2000 .CONT .Q10H TRINA Rx#:[id number] NS Inj 1,000 ML @ Wide Open IV. 1000 / 1000 SIG BOLUS ONE Rx#:[id number] Oral 240 / 240 Other: # Voids 1 Results Procedures completed during hospitalization: No invasive procedures Labs on day of discharge: Labs from last 24 hours 10/16/17 10/16/17 10/16/17 11:20 09:07 07:26 Sodium 142 Potassium 4.0 Chloride 108 H Carbon Dioxide 23.6 Anion Gap 10 BUN 17 Creatinine 0.77 Estimated GFR 73 L POC Glucose 217 H Random Glucose 213 H Hemoglobin A1c Pending Calcium 8.5 Total Creatine Kinase Troponin I 0.03 10/15/17 10/15/17 10/15/17 21:36 18:35 12:59 Sodium Potassium Chloride Carbon Dioxide Anion Gap BUN Creatinine Estimated GFR POC Glucose 150 H 244 H Random Glucose Hemoglobin A1c Calcium Total Creatine Kinase 33 Troponin I - Impressions ITS Impressions Cervical Spine CT 10/14/17 19:07 CONCLUSION: 1. No acute cervical spine abnormality is identified. However, there is degenerative disc disease at C4-C5 and extending through C6-C7. 2. There is a right thyroid nodule measuring [address] 10/14/17 19:07 CONCLUSION: No acute intracranial abnormality is identified. Abdomen/Pelvis CT 10/14/17 20:39 CONCLUSION: 1. No acute abnormality is identified within the abdomen or pelvis. 2. Nonacute findings include cholelithiasis and severe atherosclerotic disease. Chest CT 10/14/17 20:39 CONCLUSION: 1. No acute finding is identified within the chest. 2. There is a 3 mm pulmonary nodule in the left lower lobe. Carotid Doppler Study 10/15/17 00:00 CONCLUSION: Negative examination for a hemodynamically significant carotid stenosis. Moderate calcific plaque is identified. Ryan Wise MD FACR Discharge Plan - Discharge Disposition Patient Disposition: 01 Discharge Home - Discharge Condition Condition: Stable - Discharge Order Discharge Orders: Discharge Order (Routine); Ordered 10/16/17 Ordered By: Jhon Gonzales - Discharge Details Anticipated Discharge Date: 10/16/17 Discharge Comment: after echo returns - Physicians Team Primary Care Provider: Primary Care Physici,No Attending Provider: Jhon Gonzales Other Providers: Lalito Jarvis MD
[2017-10-16] MEDS ORDERED: Gabapentin 300 MG Capsule PO SCH (13:00)
[2017-10-16] MEDS ORDERED: Morphine Inj 4 MG/ML Vial IV.PUSH PRN (17:15)
--- NOTE | 2017-10-16 17:35 | ECHRPT ---
Indication: Cardiomyopathy, unspecified CONCLUSIONS The left ventricular systolic function is normal with an estimated ejection fraction in the range of 55-60%. Wall thickness is measured at the upper limits of normal. Normal left ventricular size. Mild mitral valve regurgitation. BP: / HR: 70 Rhythm: Sinus MEASUREMENTS (Male / Female) Normal Values Technical Quality:Good 2D ECHO LV Diastolic Diameter PLAX 4.3 cm 4.2 - 5.9 / 3.9 - 5.3 cm LV Systolic Diameter PLAX 3.3 cm IVS Diastolic Thickness 1.1 cm 0.6 - 1.0 / 0.6 - 0.9 cm LVPW Diastolic Thickness 1.1 cm 0.6 - 1.0 / 0.6 - 0.9 cm LV Relative Wall Thickness 0.5 LVOT Diameter 1.9 cm M-MODE Aortic Root Diameter MM 2.9 cm LA Systolic Diameter MM 3.6 cm LA Ao Ratio MM 1.2 AV Cusp Separation MM 1.8 cm DOPPLER AV Peak Velocity 147.0 cm/s AV Peak Gradient 8.6 mmHg LVOT Peak Velocity 95.3 cm/s LVOT Peak Gradient 3.6 mmHg AV Area Cont Eq pk 1.8 cm MR Peak Velocity 507.5 cm/s MR Peak Gradient 103.0 mmHg Mitral E Point Velocity 77.0 cm/s Mitral A Point Velocity 65.2 cm/s Mitral E to A Ratio 1.2 LV E' Lateral Velocity 6.2 cm/s Mitral E to LV E' Lateral Ratio 12.3 LV E' Septal Velocity 5.4 cm/s Mitral E to LV E' Septal Ratio 14.4 TR Peak Velocity 233.0 cm/s TR Peak Gradient 21.7 mmHg Right Atrial Pressure 10.0 mmHg Pulmonary Artery Systolic Pressu 31.7 mmHg Right Ventricular Systolic Press 31.7 mmHg PV Peak Velocity 156.0 cm/s PV Peak Gradient 9.7 mmHg FINDINGS LEFT VENTRICLE The left ventricular systolic function is normal with an estimated ejection fraction in the range of 55-60%. Wall thickness is measured at the upper limits of normal. Normal left ventricular size. RIGHT VENTRICLE Normal right ventricular size and systolic function. LEFT ATRIUM The left atrial size is normal. RIGHT ATRIUM The right atrial size is normal. ATRIAL SEPTUM Normal atrial septal thickness without atrial level shunting by limited color doppler interrogation. AORTA The aortic root and proximal ascending aorta are normal in size on limited imaging. MITRAL VALVE Mild mitral valve regurgitation. AORTIC VALVE Trileaflet aortic valve. No aortic valve stenosis or regurgitation. TRICUSPID VALVE Structurally normal tricuspid valve. No tricuspid valve stenosis or regurgitation. PULMONARY VALVE No pulmonary valve regurgitation or stenosis. VESSELS The inferior vena cava is normal in size. PERICARDIUM No pericardial effusion. Thais Castaneda MD (Electronically Signed) Final Date:16 October 2017 17:34
[2017-10-16] MEDS: Lisinopril 20 MG Tablet PO SCH (19:02)
[2017-10-16] MEDS: Gabapentin 100 MG Capsule PO SCH (19:03)
[2017-10-16] MEDS: Sod Chloride 0.9% Inj 1,000 ML IV.CONT SCH ×2 (20:16→22:35)
[2017-10-16] MEDS: Insulin Detemir Inj 1,000 UNIT/10 ML Vial SQ SCH (21:56)
[2017-10-17] MEDS ORDERED: hydrALAZINE 25 MG Tablet PO ONE (00:19)
[2017-10-17] MEDS: Sod Chloride 0.9% Inj 1,000 ML IV.CONT SCH (01:06)
[2017-10-17] MEDS ORDERED: Dextrose 50% in Water 50 ML Vial IV.PUSH PRN (08:34)
[2017-10-17] MEDS: Aspirin 325 MG Tablet PO SCH (08:47)
[2017-10-17] MEDS: Insulin Detemir Inj 1,000 UNIT/10 ML Vial SQ SCH (08:48)
[2017-10-17] MEDS: Senna/Docusate Sodium 8.6/50 MG Tablet PO SCH (08:49)
[2017-10-17] MEDS: amLODIPine 5 MG Tablet PO SCH (08:49)
[2017-10-17] MEDS: Gabapentin 100 MG Capsule PO SCH (08:49)
[2017-10-17] MEDS: Lisinopril 20 MG Tablet PO SCH (08:50)
[2017-10-17] MEDS: Atenolol 25 MG Tablet PO SCH (08:50)
[2017-10-17] MEDS ORDERED: Insulin NovoLOG Aspart Correctional Sugar Inj SQ SCH (09:00)
[2017-10-17 09:59] LABS: Hemoglobin A1c 10.7 % (4.3-6.0)
== END 2017-10-17 13:46 | disposition home or self-care (01) ==
LOC: NEDA 16:54 → NEPFCDU 16:54 → NEPC 16:54 → NEDA 10-15 01:55 → NEDH 10-15 05:44 → NEPFCDU 10-15 15:17
PROVIDERS: ADMIT Internal Medicine; ATTEND Internal Medicine
DX: E04.1 Nontoxic single thyroid nodule; K80.20 Calculus of gallbladder without cholecystitis without obstruction; I10 Essential (primary) hypertension; M54.9 Dorsalgia, unspecified; R55 Syncope and collapse; R74.8 Abnormal levels of other serum enzymes; Z79.899 Other long term (current) drug therapy; R91.1 Solitary pulmonary nodule; M50.321 Other cervical disc degeneration at C4-C5 level; N17.9 Acute kidney failure, unspecified; E86.0 Dehydration; E11.65 Type 2 diabetes mellitus with hyperglycemia